=== PATIENT | female | born 2005 | race Caucasian/White ===

== ENCOUNTER 2023-07-08 01:55 | Emergency (ER) | payer SELFPAY ==
[~2023-07-08] VITALS: Ht 152.4 cm; Wt 54.4 kg
[2023-07-08 02:07] VITALS: BP 121/75; PULSE 129; RESP 22; TEMP 97.9; O2SAT 99
[2023-07-08] MEDS ORDERED: KETOROLAC 60 MG/2 ML VIAL IM ONE (03:40)
[2023-07-08 04:12] VITALS: BP 121/75; PULSE 129; RESP 22; TEMP 97.9; O2SAT 99
== END 2023-07-08 03:55 | disposition home or self-care (01) ==
LOC: MED 01:55
DX: S00.83XA Contusion of other part of head, initial encounter (principal); K08.119 Complete loss of teeth due to trauma, unspecified class; Y08.89XA Assault by other specified means, initial encounter; Y93.89 Activity, other specified; Y92.524 Gas station as the place of occurrence of the external cause; Y99.8 Other external cause status
CPT/HCPCS: 70450; 70486; 81025; 96372; 99285; J1885